=== PATIENT | male | born 1970 | race African-American/Black ===

== ENCOUNTER 2017-07-28 18:17 | Emergency (ER) | payer MEDICAID ==
[~2017-07-28] VITALS: Ht 172.7 cm; Wt 75.0 kg
[2017-07-28 19:25] LABS: BASOPHILS % 0.7 % (0.0-2.0); EOSINOPHILS % 2.4 % (0.0-5.0); HEMATOCRIT. 40.1 % (42.0-52.0); HEMOGLOBIN. 14.8 g/dL (14.0-18.0); LYMPHOCYTES % 33.9 % (20.0-50.0); MEAN CORPUSCULAR HEMOGLOBIN 30.3 pg (28.0-32.0); MEAN PLATELET VOLUME 7.2 fl (7.4-10.4); MONOCYTES % 6.3 % (2.0-8.0); NEUTROPHILS % 56.7 % (40.0-76.0); PLATELET 167 x1000/uL (130-400); RED BLOOD CELL COUNT 4.89 mill/uL (4.7-6.1); RED CELL DISTRIBUTION WIDTH 13.6 % (11.6-14.6)
[2017-07-28 19:28] LABS: CARBON DIOXIDE 29 mEq/L (21-32); CHLORIDE 103 mEq/L (98-107); ETHANOL BLOOD < 10 mg/dL
[2017-07-28 19:30] LABS: INR 1.2; PROTHROMBIN TIME 12.1 sec (9.4-11.6)
[2017-07-28 19:32] LABS: TROPONIN I < 0.02 ng/mL (0.00-0.04)
[2017-07-28] MEDS ORDERED: SODIUM CHLORIDE 0.9% 1,000 ML IV ONE (20:45)
[2017-07-28 20:59] LABS: *AMPHETAMINES SCREEN URINE NEGATIVE (NEGATIVE); *BARBITURATES SCREEN URINE NEGATIVE (NEGATIVE); *BENZODIAZEPINES SCREEN URINE NEGATIVE (NEGATIVE); *COCAINE SCREEN URINE NEGATIVE (NEGATIVE); CANNABINOID URINE SCREEN NEGATIVE (NEGATIVE); METHADONE URINE SCREEN NEGATIVE (NEGATIVE); OPIATES URINE SCREEN NEGATIVE (NEGATIVE); PHENCYCLIDINE URINE SCREEN NEGATIVE (NEGATIVE)
[2017-07-28] MEDS ORDERED: IOHEXOL-350 100 ML BOTTLE ONE (22:24)
[2017-07-29 00:34] VITALS: BP 127/82
== END 2017-07-29 00:45 | disposition home or self-care (01) ==
LOC: ER 18:17
DX: R07.89 Other chest pain (principal); R06.02 Shortness of breath; Z88.6 Allergy status to analgesic agent
CPT/HCPCS: 36415; 71010; 71275; 80053; 80305; 83880; 84484; 85025; 85610; 93005; 96360; 96361; 99285; G0482; J7030; Q9967; Z7610

== ENCOUNTER 2017-12-20 11:50 | Emergency (ER) | payer SELFPAY ==
[~2017-12-20] VITALS: Ht 172.7 cm; Wt 75.0 kg
[2017-12-20 13:05] LABS: BASOPHILS % 0.6 % (0.0-2.0); EOSINOPHILS % 2.7 % (0.0-5.0); HEMATOCRIT. 44.8 % (42.0-52.0); HEMOGLOBIN. 16.1 g/dL (14.0-18.0); LYMPHOCYTES % 28.2 % (20.0-50.0); MEAN CORPUSCULAR HEMOGLOBIN 29.5 pg (28.0-32.0); MEAN CORPUSCULAR VOLUME 82.1 fL (80.0-94.0); MEAN PLATELET VOLUME 7.4 fl (7.4-10.4); MONOCYTES % 8.6 % (2.0-8.0); NEUTROPHILS % 59.9 % (40.0-76.0); PLATELET 157 x1000/uL (130-400); RED BLOOD CELL COUNT 5.45 mill/uL (4.7-6.1)
[2017-12-20 13:14] LABS: CHLORIDE 102 mEq/L (98-107)
[2017-12-20 14:41] LABS: *AMPHETAMINES SCREEN URINE NEGATIVE (NEGATIVE); *BARBITURATES SCREEN URINE NEGATIVE (NEGATIVE); *BENZODIAZEPINES SCREEN URINE NEGATIVE (NEGATIVE); *COCAINE SCREEN URINE NEGATIVE (NEGATIVE); CANNABINOID URINE SCREEN NEGATIVE (NEGATIVE); METHADONE URINE SCREEN NEGATIVE (NEGATIVE); OPIATES URINE SCREEN NEGATIVE (NEGATIVE)
[2017-12-20 14:42] LABS: PHENCYCLIDINE URINE SCREEN NEGATIVE (NEGATIVE)
[2017-12-20 15:10] VITALS: BP 144/69
== END 2017-12-20 15:14 | disposition home or self-care (01) ==
LOC: ER 11:50
DX: R07.9 Chest pain, unspecified (principal); R42 Dizziness and giddiness; R51 Headache; Z88.6 Allergy status to analgesic agent; Z79.899 Other long term (current) drug therapy
CPT/HCPCS: 36415; 71045; 80048; 80305; 84484; 85025; 93005; 99285; Z7610

== ENCOUNTER 2018-12-30 06:03 | Emergency (ER) | payer MEDICAID ==
[~2018-12-30] VITALS: Ht 172.7 cm; Wt 73.0 kg
[2018-12-30 08:28] LABS: CHLORIDE 105 mEq/L (98-107)
[2018-12-30 08:33] LABS: ETHANOL BLOOD < 10 mg/dL
[2018-12-30 08:37] LABS: CREATINE KINASE 283 IU/L (39-308)
[2018-12-30 09:04] LABS: BASOPHILS % 0.6 % (0.0-2.0); HEMATOCRIT. 42.3 % (42.0-52.0); HEMOGLOBIN. 15.3 g/dL (14.0-18.0); LYMPHOCYTES % 41.8 % (20.0-50.0); MEAN CORPUSCULAR HEMOGLOBIN 30.1 pg (28.0-32.0); MEAN CORPUSCULAR VOLUME 83.2 fL (80.0-94.0); MEAN PLATELET VOLUME 7.2 fl (7.4-10.4); NEUTROPHILS % 49.6 % (40.0-76.0); PLATELET 168 x1000/uL (130-400); RED BLOOD CELL COUNT 5.08 mill/uL (4.7-6.1); RED CELL DISTRIBUTION WIDTH 14.3 % (11.6-14.6)
[2018-12-30 09:21] LABS: *AMPHETAMINES SCREEN URINE NEGATIVE (NEGATIVE); *BARBITURATES SCREEN URINE NEGATIVE (NEGATIVE); *COCAINE SCREEN URINE NEGATIVE (NEGATIVE)
[2018-12-30 09:22] LABS: *BENZODIAZEPINES SCREEN URINE NEGATIVE (NEGATIVE); METHADONE URINE SCREEN NEGATIVE (NEGATIVE); OPIATES URINE SCREEN NEGATIVE (NEGATIVE); PHENCYCLIDINE URINE SCREEN NEGATIVE (NEGATIVE)
[2018-12-30 09:23] LABS: CANNABINOID URINE SCREEN NEGATIVE (NEGATIVE)
[2018-12-30 10:14] VITALS: BP 122/75
== END 2018-12-30 10:14 | disposition home or self-care (01) ==
LOC: ER 06:03
DX: R00.2 Palpitations (principal); Z88.6 Allergy status to analgesic agent
CPT/HCPCS: 36415; 71045; 80305; 80320; 82550; 93005; 99284; G0480

== ENCOUNTER 2019-12-26 12:15 | Emergency (ER) | payer MEDICAID ==
[~2019-12-26] VITALS: Ht 177.8 cm; Wt 68.0 kg
[2019-12-26] MEDS ORDERED: ACETAMINOPHEN 325MG TABLET PO ONE (14:00)
[2019-12-26 14:51] LABS: BASOPHILS % 0.8 % (0.0-2.0); EOSINOPHILS % 2.7 % (0.0-5.0); HEMATOCRIT. 44.4 % (42.0-52.0); HEMOGLOBIN. 16.1 g/dL (14.0-18.0); LYMPHOCYTES % 34.9 % (20.0-50.0); MEAN CORPUSCULAR HEMOGLOBIN 30.2 pg (28.0-32.0); MEAN CORPUSCULAR VOLUME 83.6 fL (80.0-94.0); MEAN PLATELET VOLUME 7.3 fl (7.4-10.4); MONOCYTES % 6.8 % (2.0-8.0); NEUTROPHILS % 54.8 % (40.0-76.0); PLATELET 178 x1000/uL (130-400); RED BLOOD CELL COUNT 5.31 mill/uL (4.7-6.1); RED CELL DISTRIBUTION WIDTH 13.5 % (11.6-14.6)
[2019-12-26 14:57] LABS: CHLORIDE 102 mEq/L (98-107)
[2019-12-26 15:04] VITALS: BP 125/75
== END 2019-12-26 16:18 | disposition home or self-care (01) ==
LOC: ER 12:15
DX: R07.89 Other chest pain (principal); F41.0 Panic disorder [episodic paroxysmal anxiety]; Z88.6 Allergy status to analgesic agent
CPT/HCPCS: 36415; 71045; 80053; 84484; 85025; 93005; 99285

== ENCOUNTER 2021-02-07 20:21 | Emergency (ER) | payer MEDICAID ==
[~2021-02-07] VITALS: Ht 182.9 cm; Wt 82.0 kg
[2021-02-07] MEDS ORDERED: ONDANSETRON HCL 4MG/2ML INJ IV STA (20:53)
[2021-02-07] MEDS ORDERED: MORPHINE SULFATE 4 MG/ML CPJ (NOT FOR IM USE) IV STA (20:53)
[2021-02-07] MEDS ORDERED: SODIUM CHLORIDE 0.9% 1,000 ML IV ONE (21:00)
[2021-02-07] MEDS ORDERED: KETOROLAC 30MG/ML VIAL IV ONE (22:30)
[2021-02-07] MEDS ORDERED: CEFTRIAXONE 1 G PREMIX 50 ML IV ONE (22:45)
[2021-02-07 22:46] LABS: HEMATOCRIT. 43.6 % (42.0-52.0); HEMOGLOBIN. 16.1 g/dL (14.0-18.0); MEAN CORPUSCULAR HEMOGLOBIN 30.1 pg (28.0-32.0); MEAN CORPUSCULAR VOLUME 81.6 fL (80.0-94.0); MEAN PLATELET VOLUME 7.3 fl (7.4-10.4); PLATELET 163 x1000/uL (130-400); RED BLOOD CELL COUNT 5.35 mill/uL (4.7-6.1)
[2021-02-07 22:48] LABS: CLARITY URINE CLEAR (CLEAR); COLOR URINE YELLOW (YELLOW); KETONES URINE NEGATIVE (NEGATIVE); LEUKOCYTE ESTERASE URINE 1+ (NEGATIVE); NITRITE URINE NEGATIVE (NEGATIVE); OCCULT BLOOD URINE NEGATIVE (NEGATIVE); PH URINE >=9.0 (4.5-8.0); PROTEIN URINE NEGATIVE (NEGATIVE); SPECIFIC GRAVITY URINE 1.015 (1.005-1.030)
[2021-02-07 22:55] LABS: CHLORIDE 103 mEq/L (98-107)
[2021-02-08] VITALS: BP 106/69
[2021-02-08] MEDS ORDERED: HYDR-4346 MT (00:13)
[2021-02-08] MEDS ORDERED: SULF1TAB48 MT (00:13)
[2021-02-08 00:18] LABS: PLATELET ESTIMATE NORMAL
[2021-02-08] MEDS ORDERED: IOHEXOL-300 100 ML BOTTLE ONE (01:14)
== END 2021-02-08 00:45 | disposition home or self-care (01) ==
LOC: ER 20:21
DX: N45.1 Epididymitis (principal); K42.9 Umbilical hernia without obstruction or gangrene; Z88.6 Allergy status to analgesic agent
CPT/HCPCS: 36415; 74177; 76870; 80053; 81003; 83690; 85025; 93005; 93976; 96365; 96375; 99285; J0696; J1885; J2270; J2405; J7030; Q9967

== ENCOUNTER 2021-06-07 11:49 | Emergency (ER) | payer MEDICAID ==
[~2021-06-07] VITALS: Ht 170.2 cm; Wt 78.0 kg
[~2021-06-07 11:49] MED LIST: HYDR-4346 MT; SULF1TAB48 MT
[2021-06-07] MEDS ORDERED: MAG355OR20 PO ×2 (12:14)
[2021-06-07] MEDS ORDERED: ACETAMINOPHEN 325MG TABLET PO ONE (12:15)
[2021-06-07 12:37] VITALS: BP 110/89
== END 2021-06-07 12:40 | disposition home or self-care (01) ==
LOC: ER 11:49
DX: K12.0 Recurrent oral aphthae (principal); R51.9 Headache, unspecified; Z88.6 Allergy status to analgesic agent
CPT/HCPCS: 99282